=== PATIENT | female | born 2005 | race Two or more races ===

== ENCOUNTER 2025-04-12 23:43 | Inpatient (IN) | payer OTHER ==
[~2025-04-12] VITALS: Ht 165.1 cm; Wt 63.0 kg
[2025-04-13] VITALS (19 sets, daily range): BP systolic 110–131; BP diastolic 51–87; PULSE 75–98; RESP 11–18; TEMP 97.9–98.3; O2SAT 93–100
[2025-04-13] MEDS ORDERED: PHISODERM TOP SOLN 240ML BTL TOP PRN (00:30)
[2025-04-13] MEDS ORDERED: WITCH HAZEL-GLYCERIN PAD TOP PRN (00:30)
[2025-04-13] MEDS ORDERED: DERMOPLAST 60ML BOTTLE TOP PRN (00:30)
[2025-04-13] MEDS: LACT. RINGERS/OXYTOCIN 20UNITS 500 ML IV ONE ×2 (00:30→01:00)
[2025-04-13] MEDS ORDERED: ONDANSETRON HCL 4 MG/2 ML VIAL IV PRN ×3 (00:30→03:15)
[2025-04-13] MEDS ORDERED: NALBUPHINE HCL 10 MG/1ml INJECTION IV PRN (00:30)
--- NOTE | 2025-04-13 01:06 | DVHHP2 ---
OB CC & HPI Date Date of Admission: April 13, 2025 Patient Identification: : 2 Para: 1 EGA: 36 Chief Complaints: Reason for admission: active labor History of Present Complaints 19y hx of 20 wk SAB, no living children care in [place]. States told has "Pre-eclampsia". Reports history of chronic renal insufficiency, CKD stage 2 Presented with c/o labor pains and regular contractions , denies PROM or vaginal bleeding. Normal movements. Found to be 5cm dilated on admission. Hx of Amphetamine and Fentanyl drug abuse , last used 1 week ago per patient. BP elevated on admission, denies any headache, epigastric pain or edema. Urine prot/cr ratio= 0.2 (normal) GBS unknown. records not available. Labs show Syphilis TPA-Ab+, denies knowledge of this condition or prior treatment OB US on admission shows ascites/Hydrops. Peds team notified. Past Medical History Cardiac: No pertinent Hx Pulmonary: No pertinent Hx Central Nervous System: No pertinent Hx GI: No pertinent Hx Hemotology/Oncology: No pertinent Hx Hepatobiliary: No pertinent Hx Psychiatric: Depression (Hx of self cutting) Musculoskeletal: No pertinent Hx Rheumotologic: No pertinent Hx Infectious Disease: No peritnent Hx ENT: No pertinent Hx Renal/: No pertinent Hx Endocrine: No pertinent Hx Dermatology: No pertinent Hx Past Surgical History: No pertinent Hx OB History OB History Care: Limited Care Ultrasounds: Other (Unknown) Obstetrical Complications: None Medical Complications: Other (Drug abuse) Allergies: Coded Allergies: NO KNOWN ALLERGIES (Unverified , 04/13/25) Current Medications Current Medications Medications (Trade) Dose Ordered Sig/Dimitrios Route PRN Reason Start Time Stop Time Status Last Admin Lactated Ringer's 1,000 ml @ 125 mls/hr Q8H IV 04/13/25 00:30 Nalbuphine HCl (Nubain) 10 mg Q4HP PRN IV MODERATE PAIN (4-6 PAIN SCALE) 04/13/25 00:30 Penicillin G Potassium [id number] units/Dextrose 50 ml @ 100 mls/hr Q4H IV 04/13/25 04:30 Witch Miya (Tucks) 1 pad PRN PRN TOP PERINEAL AREA DISCOMFORT 04/13/25 00:30 Sodium Lauryl Sulfate (Phisoderm) 240 ml PRN PRN TOP PERINEAL AREA DISCOMFORT 5/20/25 00:30 Benzocaine (Dermoplast) 1 applic PRN PRN TOP PERINEAL AREA DISCOMFORT 04/13/25 00:30 Lidocaine HCl (Xylocaine) 20 ml ONCE PRN IJ PERINEAL AREA DISCOMFORT 04/13/25 00:30 Ondansetron HCl (Zofran) 4 mg Q4HPRN PRN IV NAUSEA / VOMITING 04/13/25 00:30 Family & Social History Family/Social History Rubella: unknown RPR/VDRL: Unknown GBS Status: Unknown HBsAG: Unknown Review of Systems Constitutional: No symptom reported Ears, Nose, & Throat: No symptom reported Eyes: No symptom reported Pulmonary/Respiratory: No symptom reported Cardiovascular: No symptom reported Gastrointestinal: No symptom reported Genitourinary: No symptom reported Musculoskeletal: No symptom reported Skin: No symptom reported Psychiatric: No symptom reported Endocrine: No symptom reported Hemotologic/Lymphatic: No symptom reported OB Admission Exam Physical Exam Vitals: see EHR for VS HEENT: NCAT, Comment: (Facial tattoos) Heart: Rhythm Normal Lungs: Clear Abdomen: Gravid Extremities: Normal Reflexes: Normal Pelvic Exam: RN exam Cervical Dilatation: 6cm Effacement: Other (80) Station: -2 Membranes: Ruptured Amniotic Fluid: Thick Meconium Heart Rate: 150's Accelerations: No Accelerations Decelerations: Variable Decelerations (Severe variables) Short Term Variability: Present Custodial Variability: Average (6-25) Contractions on Admission: 6-10 Minutes Apart Intensity: Moderate OB Plan Plan Admitting Diagnosis: 1. LABOR 36 wk by stated EDC 2. GBS unknown 3. Categ 2 FHR, remote from delivery - s/p AROM Meconium + Fluid 4. Hx of Drug Abuse : Amphetamine/Fentanyl 5. Elevated BP's : Gestational HTN vs Pre-eclampsia, vs Drug induced HTN 6. Syphilis, untreated Plan: Section Other Plan: Admit for labor and delivery; Informed consent obtained for treatment and C/Section Discussed indications for C/S due to NRFHR (categ 2) remote from delivery, fetus is at risk UDS and PIH labs ordered Ancef 2gm IV and Azithromycin 500mg IV ordered for surgical prophylaxis. Complete OB US for EFW and to screen for anomalies completed , report pending, prelim shows ascites/hydrops Addendum: Emergent C/S called at 0120 a.m., OR notified. Meconium fluid found after AROM, thick Amnioinfusion started and Terbutaline given to stop contractions while awaiting for Anesthesia and OR team to arrive.. Test results show Syphilis positive, previously untreated and US suggestive of hydrops, team notified. Visit Coding OBGYN Date of Service: April 13, 2025 Billing Provider: TANJA VERONN DO FIELD LOGISTICS COORDINATOR Common Visit Codes: [id number] INP/OBS CARE (HIGH) FIELD LOGISTICS COORDINATOR Procedure Codes: [id number] W/ CARE TANJA VERNON DO April 13, 2025 01:06
[2025-04-13] MEDS: LACTATED RINGER'S 1,000 ML IV SCH (01:19)
[2025-04-13] MEDS: PENICILLIN G POT 5MIL/D5 50ML 50 ML IV ONE (01:20)
[2025-04-13] MEDS: TERBUTALINE SULFATE 1 MG/ML 1ML VIAL SC ONE (01:25)
[2025-04-13] MEDS: ceFAZolin 2 GM/D5W50ml 50 ML IV ONE (01:31)
[2025-04-13 01:35] LABS: Urine Bacteria None Seen /hpf (None Seen)
[2025-04-13 01:39] LABS: Basophils # (auto) 0.1 10 ^3/uL (0-0.2); Eosinophils # (auto) 0.1 10 ^3/uL (0-0.8); Hematocrit 31.7 % (36.0-46.0); Hemoglobin 9.9 g/dL (12.2-16.2); Mean Corpuscular Hgb Conc. 31.2 g/dL (32.0-36.0); Monocytes # (auto) 0.7 10 ^3/uL (0-1.3)
[2025-04-13 01:40] LABS: Basophils % (auto) 0.8 % (0.0-2.0); Eosinophils % (auto) 0.7 % (0.0-7.0); Lymphocytes # (auto) 1.5 10 ^3/uL (0.4-5.4); Lymphocytes % (auto) 11.6 % (10.0-50.0); Mean Corpuscular Hemoglobin 23.1 pg (28.0-32.0); Monocytes % (auto) 5.4 % (0.0-12.0); Neutrophils # (auto) 10.7 10 ^3/uL (1.6-8.6); Neutrophils % (auto) 81.5 % (37.0-80.0); Platelet Count (auto) 267 10^3/uL (140-450); Red Blood Cells 4.29 10^6/uL (4.0-5.20); Red Cell Distribution Width 17.5 % (11.8-14.3); White Blood Cell 13.1 10^3/uL (4.4-10.8)
[2025-04-13] MEDS: AZITHROMYCIN 500MG/ 250ML 250 ML IV ONE ×2 (01:45→01:53)
[2025-04-13 01:46] LABS: Urine Blood Negative /uL (Negative); Urine Clarity Clear (Clear); Urine Color Light-Yellow (Yellow); Urine Mucus FEW (None Seen); Urine Protein, UAD Negative (Negative); Urine Specific Gravity 1.019 (1.001-1.035); Urine Squamous Epithelial Cell FEW /hpf (<5); Urine Urobilinogen 2 mg/dL (Negative); Urine WBC 11 /HPF (0-5); Urine pH 7.5 (5.0-9.0)
[2025-04-13 01:55] LABS: INR 0.9 (0.9-1.15); Partial Thromboplastin Time 30.9 SEC (24.5-34.5); Prothrombin Time 9.6 sec (9.3-11.8)
[2025-04-13 01:56] LABS: Protein, Urine 17.6 mg/dL (1-14)
[2025-04-13 01:57] LABS: Alanine Aminotransferase 10 U/L (7-40); Albumin 3.8 g/dL (3.2-4.8); Anion Gap 9 (5-15); Aspartate Aminotransferase 14 U/L (13-40); BUN/Creatinine Ratio 9.8 (10.0-20.0); Calcium 8.8 mg/dL (8.7-10.4); Carbon Dioxide 23 mmol/L (20-31); Chloride 104 mmol/L (98-107); Glucose 84 mg/dL (74-106); Potassium 4.5 mmol/L (3.5-5.1); Sodium 136 mmol/L (136-145); Total Protein 6.2 g/dL (5.7-8.2)
[2025-04-13 01:58] LABS: Amphetamine Screen, Urine Neg (NEGATIVE); Creatinine, Urine 87.96 mg/dL (30.0-125.0); Urine Protein/Creatinine Ratio 0.2
--- NOTE | 2025-04-13 02:08 | DVH ---
LIMITED OB ULTRASOUND > 14 WKS: HISTORY: LABOR TECHNIQUE: Multiple real-time grayscale images of the gravid uterus with duplex Doppler color flow an d M-mode spectral analysis. Findings/ IMPRESSION: Limited evaluation due to patient being in labor and early termination of the examination by the [facility] physician. Intrauterine corresponding to 33 weeks 3 days with expected due date of May. JAIRO of 24 cm, concerning for polyhydramnios. heart rate of 143 beats per minute. F etal presentation is cephalic. Placenta is anterior grade 3. Cervix is not visualized on this study . The visualized anatomy which includes the bilateral kidneys, stomach, bladder, 3-vessel cord, and cord insertion are within normal limits. The ventricles, posterior fossa, spine, and 4-chamber h eart were not visualized on this study. Fluid is seen within the abdomen concern for hydrops fe talis. No nuchal cord sign is identified. movement was noted by the sulphate tester.
[2025-04-13] MEDS ORDERED: MORPHINE SULF PF 5 MG/10 ML VIAL ONE (02:10)
[2025-04-13] MEDS ORDERED: fentaNYL CITRATE 100 MCG/2 ML VL ONE (02:10)
[2025-04-13] MEDS ORDERED: ONDANSETRON HCL 4 MG/2 ML VIAL ONE (02:11)
[2025-04-13] MEDS ORDERED: DexAMETHasone SOD PHOS 10MG/1ML VIAL INJ ONE (02:11)
[2025-04-13] MEDS ORDERED: KETOROLAC TROMETH 30 MG/ML 1ML VIAL ONE (02:12)
[2025-04-13] MEDS ORDERED: oxyTOCIN 10 UNIT/ML 10ML VIAL ONE (02:13)
[2025-04-13 02:15] LABS: Alkaline Phosphatase 165 U/L (46-116); Blood Urea Nitrogen 5 mg/dL (9-23)
[2025-04-13 02:16] LABS: Barbiturate Scree,Urine Neg (NEGATIVE); Benzodiazephine Screen, Urine Neg (NEGATIVE); Cannabinoid Screen, Urine Neg (NEGATIVE); Cocaine Screen, Urine Neg (NEGATIVE); Opiate Scree,Urine Neg (NEGATIVE); Phencyclidine Screen, Urine Neg (NEGATIVE)
[2025-04-13] MEDS ORDERED: PHENYLEPHRINE HCL 10 MG/ML VL ONE (02:26)
[2025-04-13] MEDS ORDERED: SODIUM CHLORIDE LOCK 10 ML ONE (02:26)
[2025-04-13] MEDS ORDERED: LABETALOL HCL 200 MG TAB PO PRN (03:15)
[2025-04-13] MEDS ORDERED: ceFAZolin 1GM/50ML 50 ML IV ONE (03:15)
[2025-04-13] MEDS ORDERED: KETOROLAC TROMETH 30 MG/ML 1ML VIAL IV PRN (03:15)
[2025-04-13] MEDS ORDERED: HYDROmorphone HCL 2 MG/ML VL/or syr IV PRN ×2 (03:15)
[2025-04-13] MEDS ORDERED: NALOXONE HCL 0.4 MG/ML VIAL IV PRN (03:15)
[2025-04-13] MEDS ORDERED: NALBUPHINE HCL 10 MG/1ml INJECTION IV ONE (03:15)
[2025-04-13] MEDS ORDERED: SIMETHICONE 80 MG CHEWABLE TABLET PO PRN (03:15)
[2025-04-13] MEDS: GUM (CHEWING) 1 GUM CHEW CHEW ONE (03:15)
[2025-04-13 03:35] LABS: Bilirubin, Total 0.3 mg/dL (0.2-1.0)
--- NOTE | 2025-04-13 04:16 | DVHOP ---
DATE OF SURGERY: 04/13/2025 PREOPERATIVE DIAGNOSES: * labor. IUP 36 weeks by stated EDC. * Category 2 heart rate pattern with repetitive deep variable decelerations, remote from delivery. * Maternal hypertension (gestational hypertension versus preeclampsia versus drug-induced hypertension). * History of amphetamine and fentanyl drug abuse. * Syphilis untreated. * Suspected hydrops. FINAL DIAGNOSES: * labor. IUP 36 weeks by stated EDC. * Category 2 heart rate pattern with repetitive deep variable decelerations, remote from delivery. * Maternal hypertension (gestational hypertension versus preeclampsia versus drug-induced hypertension). * History of amphetamine and fentanyl drug abuse. * Syphilis untreated. * Suspected hydrops. PROCEDURE PERFORMED: Emergent primary low transverse section via Pfannenstiel skin incision. SURGEON: Jeremiah Katz DO HEATER ROOM HELPER: Navigation Teacher TYPE OF ANESTHESIA: Spinal. ANESTHESIOLOGIST: Jonathan Rudolph CRNA. DESCRIPTION OF FINDINGS: Delivery of a liveborn infant cephalic presentation, 3+ meconium fluid, scores of 3, 5, and 7, distended abdomen consistent with abdominal ascites, abnormal facial features. Normal bilateral fallopian tubes and ovaries. Dense filmy adhesions over the posterior uterus and adnexa consistent with chronic PID. Normal placenta, 3-vessel umbilical cord, polyhydramnios present, 2-layer uterine closure. TECHNICAL PROCEDURE: After informed consent was obtained, the patient was taken to the operating room where her spinal anesthesia was found to be adequate. She was placed in the supine position with a slight leftward tilt. She was sterilely prepped and draped in usual fashion. A Pfannenstiel skin incision was made with the scalpel. The incision developed sharply to the underlying layer of fascia. The fascia was incised in the midline and extended sharply bilaterally with Peres scissors. The rectus muscles were dissected off the rectus fascia. Blunt digital entry was used for peritoneal entry. After entry into the peritoneal cavity, this incision was extended superiorly and inferiorly with good visualization of the bladder. The peritoneal incision was manually stretched. The Richard O retractor was then placed into the incision. Using a second scalpel, the lower uterine segment was incised in a low transverse fashion. The incision was extended laterally with bandage scissors. The baby was then found to be in the cephalic presentation with meconium stained fluid as described above. The infant was delivered atraumatically after delivery of the infant. The nose and mouth were suctioned. The cord was clamped and cut and the baby handed off to waiting pediatric team. Cord blood and cord gases were obtained. The placenta was manually removed. The uterus was exteriorized and cleared of all clots and debris using moist laparotomy sponges. The uterine incision was repaired with #1 Stratafix PDS spiral. This was repaired in 2 layers in continuous running fashion with good tissue approximation. The uterus was returned to the abdomen. The paracolic gutters and cul-de-sac were cleared of all clots and debris. The abdomen was irrigated with sterile water. Hemostasis was confirmed. All laps and instruments were removed from the patient's abdomen. I then proceeded to close the rectus fascia using #1 PDS Stratafix in continuous running fashion with good tissue approximation. The subcutaneous tissue was irrigated. Bleeding points controlled with cautery. The skin closed transversely with sean. Sylke sterile dressing was then placed over the incision. The patient tolerated the procedure well. Sponge, lap, and needle counts were correct x4. INTRAOPERATIVE COMPLICATIONS: None. ESTIMATED BLOOD LOSS: 650 mL. POSTOPERATIVE CONDITION: Stable. SPECIMENS: Cord blood, cord gas and placenta. MEDICATIONS: The patient received 2 grams of Ancef and 500 mg of azithromycin prior to skin incision. DO SARAH Zamora TID: [id number] RECEIPT: [id number]
[2025-04-13] MEDS: PENICILLIN G POTASSIUM 2,500,000 UNITS in D5W 5% 50 ML IV SCH (04:30)
[2025-04-13] MEDS: LIDOCAINE 2%HCL (LOCAL ANESTH.) INJ 20ML MDV IJ PRN (05:25)
[2025-04-13] MEDS: MILK OF MAGNESIA 30ML SUSP PO SCH (10:00)
[2025-04-13] MEDS: ceFAZolin 1GM/50ML 50 ML IV SCH (10:09)
[2025-04-13] MEDS: IRON SUCROSE COMPLEX 110 ML IV SCH (11:54)
[2025-04-13 12:44] LABS: RAPID PLASMA REAGIN REACTIVE (NONREACTIVE)
[2025-04-13] MEDS: DOCUSATE SOD 100 MG CAP PO SCH (23:00)
[2025-04-14] VITALS (8 sets, daily range): BP systolic 124–132; BP diastolic 66–78; PULSE 75–90; RESP 15–17; TEMP 97.9–98.5; O2SAT 95–98
--- NOTE | 2025-04-14 00:36 | DVHPN2 ---
Progress Note Date Seen: April 14, 2025 Subjective S: bleeding is less, diet is advancing as tolerated, denies lightheaded/dizziness, pain well controlled with medications, hernandez catheter in place, passing flatus, no BM yet vital signs Vital Sign Date Time Temp Pulse Resp B/P (MAP) Pulse Ox O2 Delivery O2 Flow Rate FiO2 04/13/25 23:00 98.1 81 17 127/71 (89) 96 98.1 04/13/25 07:00 Room Air 04/13/25 03:03 98 Total Intake and Output 04/13/25 04/13/25 04/14/25 15:00 23:00 07:00 Output Total 900 ml 700 ml 900 ml Balance -900 ml -700 ml -900 ml medications Current Medications Medications Dose Ordered Sig/Dimitrios Route Start Time Stop Time Status Last Admin Dose Admin Lactated Ringer's 1,000 ml @ 125 mls/hr Q8H IV 04/13/25 00:30 04/13/25 10:18 125 MLS/HR Nalbuphine HCl 10 mg Q4HP PRN IV 04/13/25 00:30 Cancel Witch Miya 1 pad PRN PRN TOP 04/13/25 00:30 Sodium Lauryl Sulfate 240 ml PRN PRN TOP 04/13/25 00:30 Benzocaine 1 applic PRN PRN TOP 04/13/25 00:30 Ondansetron HCl 4 mg Q4HPRN PRN IV 04/13/25 00:30 Cancel Diphenhydramine HCl 25 mg Q4HP PRN IV 04/13/25 03:15 Ondansetron HCl 4 mg Q4HP PRN IV 04/13/25 03:15 Penicillin G Benzathine 2,400,000 units QWEEKLY IM 04/13/25 03:15 04/27/25 03:16 Ondansetron HCl 4 mg Q4HP PRN IV 04/13/25 03:15 Cancel Hydromorphone HCl 1 mg Q4HP PRN IV 04/13/25 03:15 Docusate Sodium 200 mg HS PO 04/13/25 22:00 Dimethicone 80 mg QID PRN PO 04/13/25 03:15 Ibuprofen 600 mg Q6HR PO 04/14/25 06:00 Labetalol HCl 200 mg Q12HR PRN PO 04/13/25 03:15 Iron Sucrose 110 ml @ 110 mls/hr DAILY@1200 IV 04/13/25 12:00 04/17/25 12:59 04/13/25 11:54 110 MLS/HR Magnesium Hydroxide 30 ml DAILY PO 04/13/25 10:00 Cefazolin Sodium 50 ml @ 100 mls/hr Q8HR IV 04/13/25 10:00 04/13/25 16:08 100 MLS/HR laboratory and microbiology Laboratory Tests 04/13/25 01:24 Test 04/13/25 01:24 Range/Units Serum Glucose 84 74-106 mg/dL Objective O: VSS Chest: heart sounds normal and lung sounds clear bilaterally Abd: soft, non-tender, fundus U-1/firm/midline, active bowel sounds, no rebound or guarding Incision: sylke dressing open to air, clean/dry/intact with 25% old drainage Ext: Non-tender, No edema, 2+ BLE DTRs Lochia: minimal KB stain lab drawn, pending result ([facility] asked for it) Bicillin given Problems(with codes): (1) S/P primary low transverse (2) Syphilis affecting in third trimester (3) History of drug use (4) Precipitous drop in hematocrit (5) Iron deficiency anemia of mother during Assessment/Plan A/P: 19yo now POD#1 s/p primary Syphilis Hx of drug use -Continue with routine post-op PP care -SW consult ordered Plan discussed with: Patient Visit Coding OBGYN Date of Service: April 14, 2025 Billing Provider: KEYLA DOWNS CNM SALON DESIGNER Common Visit Codes: [id number] INP/OBS CARE(HIGH) KEYLA DOWNS CNM April 14, 2025 00:36
[2025-04-14] MEDS: PENICILLIN G BENZ 1,200,000 UNITS/2 ML SYRG IM SCH (01:28)
[2025-04-14] MEDS: HYDROcodone-ACET 5/325MG TAB PO PRN ×2 (03:27→10:13)
[2025-04-14] MEDS: diphenhdrAMINE HCL 50 MG/1 ML VL IV PRN (03:39)
[2025-04-14] MEDS ORDERED: IBUPROFEN 600 MG TAB PO SCH (06:00)
[2025-04-14] MEDS: SIMETHICONE 80 MG CHEWABLE TABLET PO SCH (06:00)
[2025-04-14 07:27] LABS: Basophils # (auto) 0 10 ^3/uL (0-0.2); Basophils % (auto) 0.2 % (0.0-2.0); Eosinophils # (auto) 0.1 10 ^3/uL (0-0.8); Eosinophils % (auto) 0.4 % (0.0-7.0); Hematocrit 25.7 % (36.0-46.0); Hemoglobin 8.1 g/dL (12.2-16.2); Lymphocytes # (auto) 2.5 10 ^3/uL (0.4-5.4); Lymphocytes % (auto) 16.7 % (10.0-50.0); Mean Corpuscular Hemoglobin 23.3 pg (28.0-32.0); Mean Corpuscular Hgb Conc. 31.5 g/dL (32.0-36.0); Monocytes # (auto) 0.8 10 ^3/uL (0-1.3); Monocytes % (auto) 5.6 % (0.0-12.0); Neutrophils # (auto) 11.7 10 ^3/uL (1.6-8.6); Neutrophils % (auto) 77.1 % (37.0-80.0); Nucleated Red Blood Cells % 0.1 %; Platelet Count (auto) 245 10^3/uL (140-450); Red Blood Cells 3.47 10^6/uL (4.0-5.20); Red Cell Distribution Width 17.7 % (11.8-14.3); White Blood Cell 15.2 10^3/uL (4.4-10.8)
[2025-04-14] MEDS: DOCUSATE SOD 100 MG CAP PO SCH (09:26)
[2025-04-14] MEDS: IBUPROFEN 800 MG TAB PO PRN (22:51)
--- NOTE | 2025-04-15 00:47 | DVHPN2 ---
Progress Note Date Seen: April 15, 2025 Subjective S: bleeding is less, eating food without issues, denies lightheaded/dizziness, pain well controlled with oral medications, no concerns with urinating, passing flatus, no BM yet, ambulating well, pumping vital signs Vital Sign Date Time Temp Pulse Resp B/P (MAP) Pulse Ox O2 Delivery O2 Flow Rate FiO2 04/14/25 23:00 97.9 80 16 130/71 (90) 95 97.9 04/14/25 19:00 Room Air Total Intake and Output 04/14/25 04/14/25 04/15/25 15:00 23:00 07:00 Output Total 1100 ml Balance -1100 ml medications Current Medications Medications Dose Ordered Sig/Dimitrios Route Start Time Stop Time Status Last Admin Dose Admin Nalbuphine HCl 10 mg Q4HP PRN IV 04/13/25 00:30 Cancel Witch Miya 1 pad PRN PRN TOP 04/13/25 00:30 Sodium Lauryl Sulfate 240 ml PRN PRN TOP 04/13/25 00:30 Benzocaine 1 applic PRN PRN TOP 04/13/25 00:30 Ondansetron HCl 4 mg Q4HPRN PRN IV 04/13/25 00:30 Cancel Diphenhydramine HCl 25 mg Q4HP PRN IV 04/13/25 03:15 04/14/25 03:39 25 MG Ondansetron HCl 4 mg Q4HP PRN IV 04/13/25 03:15 Penicillin G Benzathine 2,400,000 units QWEEKLY IM 04/13/25 03:15 04/27/25 03:16 04/14/25 01:28 2,400,000 UNITS Ondansetron HCl 4 mg Q4HP PRN IV 04/13/25 03:15 Cancel Hydromorphone HCl 1 mg Q4HP PRN IV 04/13/25 03:15 Cancel Docusate Sodium 200 mg HS PO 04/13/25 22:00 04/14/25 19:34 200 MG Dimethicone 80 mg QID PRN PO 04/13/25 03:15 Cancel Ibuprofen 600 mg Q6HR PO 04/14/25 06:00 Cancel Labetalol HCl 200 mg Q12HR PRN PO 04/13/25 03:15 Magnesium Hydroxide 30 ml DAILY PO 04/13/25 10:00 Cefazolin Sodium 50 ml @ 100 mls/hr Q8HR IV 04/13/25 10:00 04/14/25 17:33 100 MLS/HR Docusate Sodium 100 mg Q12HR PO 04/14/25 10:00 04/14/25 09:26 100 MG Dimethicone 80 mg QID PO 04/14/25 06:00 04/14/25 19:35 80 MG Ibuprofen 800 mg Q8HP PRN PO 04/14/25 03:00 04/14/25 22:51 800 MG Acetaminophen/ Hydrocodone Bitart 1 tab Q4HPRN PRN PO 04/14/25 03:00 04/14/25 03:27 1 TAB Acetaminophen/ Hydrocodone Bitart 2 tab Q4HPRN PRN PO 04/14/25 03:00 04/14/25 19:34 2 TAB laboratory and microbiology Laboratory Tests 04/14/25 07:09 04/13/25 01:24 Test 04/13/25 01:24 Range/Units Serum Glucose 84 74-106 mg/dL Objective O: VSS Chest: heart sounds normal and lung sounds clear bilaterally, no lesions noted Abd: soft, non-tender, fundus at U/firm/midline, active bowel sounds, no rebound or guarding Incision: sylke dressing open to air, clean/dry/intact with 25% old drainage noted Ext: Non-tender, No edema, 2+ BLE DTRs Lochia: minimal See lab results KB stain sent, result pending 1st dose of Bicillin received SW consult done Problems(with codes): (1) History of drug use (2) Iron deficiency anemia of mother during (3) Precipitous drop in hematocrit (4) Syphilis affecting in third trimester (5) S/P primary low transverse Assessment/Plan A: 19yo now POD#2 s/p primary Anemia Syphilis Rh+ Rubella Immune Pumping breast milk, baby in NICU at [facility] P: D/C home today Rx sent to pharmacy precautions and preeclampsia warning signs reviewed f/u with [facility] for syphilis treatment in 1 wk F/U with Dr. Beverly in 1 week Plan discussed with: Patient Visit Coding OBGYN Date of Service: April 15, 2025 Billing Provider: KEYLA DOWNS CNM CEMENTER OIL WELL Common Visit Codes: [id number] INP/OBS CARE(HIGH) KEYLA DOWNS CNM April 15, 2025 00:47
[2025-04-15] MEDS ORDERED: IBUP-1455 PO (00:51)
[2025-04-15] MEDS ORDERED: FER325T PO (00:51)
[2025-04-15] MEDS ORDERED: DOCU-265 PO (00:51)
[2025-04-15] MEDS ORDERED: HYDR-4902 PO (00:51)
--- NOTE | 2025-04-15 01:02 | DVHDS2 ---
Obstetrics Discharge Summary Obstetrics Discharge Summary Date of Admission: April 12, 2025 Date of Discharge: April 15, 2025 Reason For Admission: Onset of Labor Procedures: NST, Ultrasound Intrapartum Procedures: (primary LTCS) Procedures: Antibiotics, Hct/date: (04/14/25), Hgb/date: (04/14/25) Operative Complicat: None Discharge Diagnosis: Delivery, Others (syphilis) Discharge Information: Activity (as tolerated, no heavy lifting and nothing in the vagina for 6 weeks), Diet (Routine), Medications (Rx sent), Instructions (Routine), Discharge to (Home), Accompanied by (friend), Discarge date (04/15/25) Visit Coding OBGYN Date of Service: April 15, 2025 Billing Provider: KEYLA DOWNS CNM DATA WAREHOUSE DEVELOPER Common Visit Codes: [id number] DISCH DAY <30MIN KEYLA DOWNS CNM April 15, 2025 01:02
[2025-04-15 03:00] VITALS: BP 140/78; PULSE 87; RESP 16; TEMP 97.9; O2SAT 95
[2025-04-15 07:00] VITALS: BP 135/72; PULSE 89; RESP 16; TEMP 98.1; O2SAT 96
[2025-04-15] MEDS ORDERED: TETANUS-DIPTH-ACEL PERTUSSIS 0.5ML SYR Tdap IM ONE (09:15)
[2025-04-15 09:30] VITALS: BP 121/70; PULSE 70; RESP 16; TEMP 98.1; O2SAT 97
== END 2025-04-15 09:30 | disposition home or self-care (01) | DRG 540 ==
LOC: LDRP 23:43 → OBSVTOIN 04-13 00:20 → LDRP 04-13 00:35
PROVIDERS: ADMIT Obstetrics & Gynecology; ATTEND Obstetrics & Gynecology
PROC: 10D00Z1 Extraction of Products of Conception, Low, Open Approach (ICD-10-PCS; principal; 2025-04-13 02:10)
DX: O60.14X0 Preterm labor third trimester with preterm delivery third trimester, not applicable or unspecified (principal); O26.833 Pregnancy related renal disease, third trimester; O98.12 Syphilis complicating childbirth; O76 Abnormality in fetal heart rate and rhythm complicating labor and delivery; O99.02 Anemia complicating childbirth; D50.9 Iron deficiency anemia, unspecified; N18.2 Chronic kidney disease, stage 2 (mild); Z3A.36 36 weeks gestation of pregnancy; O77.0 Labor and delivery complicated by meconium in amniotic fluid; Z37.0 Single live birth; F32.A Depression, unspecified
CPT/HCPCS: 36415; 76805; 80053; 80307; 81001; 82570; 83036; 84156; 84550; 85025; 85610; 85730; 86592; 86593; 86703; 86762; 86780; 86803; 86850; 86900; 86901; 87340; 94760; 94762; 96360; 96361; 96372; 96375; G0378; J1100; J1756; J1885; J2405; J2540; J2590; J7060